=== PATIENT | male | born 1985 | race Caucasian/White ===

== ENCOUNTER 2022-10-15 18:02 | Emergency (ER) | payer OTHER, SELFPAY ==
[2022-10-15 18:15] VITALS: BP 113/83; PULSE 111; RESP 18; TEMP 37; O2SAT 96
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
== END 2022-10-15 18:45 | disposition home or self-care (01) ==
PROVIDERS: Emergency Provider Nurse Practitioner Family; PCP Physician Assistant
DX: S76.311A Strain of muscle, fascia and tendon of the posterior muscle group at thigh level, right thigh, initial encounter (principal); V40.6XXA Car passenger injured in collision with pedestrian or animal in traffic accident, initial encounter; R51.9 Headache, unspecified
CPT/HCPCS: 99213; G0463

== ENCOUNTER 2023-01-21 12:33 | Emergency (ER) | payer OTHER, SELFPAY ==
--- NOTE | ~2023-01-21 | XR_ITS ---
EXAMINATION: XR knee RT min 4V DATE: 01/21/2023 13:13 INDICATION: Swelling and erythema at the anteromedial right knee pain TECHNIQUE: Anteroposterior, 2 oblique and crosstable lateral views of the right knee were obtained COMPARISON: None. FINDINGS: Alignment is normal. No fracture. No joint effusion/layering lipohemarthrosis. There is prominent re latively dense prepatellar soft tissue swelling with swelling and less dense subcutaneous edema exten ding along the lateral aspect of the right knee and proximal calf. No soft tissue gas or radiopaque f oreign bodies. IMPRESSION: 1. Prominent relatively dense prepatellar soft tissue swelling which could represent prepatellar burs itis, cellulitis or posttraumatic contusion. 2. No osseous abnormality or right knee joint effusion. Reviewed, dictated and finalized at location B. IMPRESSION: 1. Prominent relatively dense prepatellar soft tissue swelling which could repr esent prepatellar bursitis, cellulitis or posttraumatic contusion. 2. No osseous abnormality or right knee joint effusion.
[2023-01-21 12:38] VITALS: BP 127/86; PULSE 95; RESP 18; TEMP 37.2; O2SAT 100
--- NOTE | 2023-01-21 13:01 | ED.LOWEXIN ---
HPI - Extremity Injury (Lower) General Chief Complaint: Extremity Injury, Lower Stated Complaint: Right Knee Injury Time Seen by Provider: 01/21/23 12:57 Source: patient and RN notes reviewed Mode of arrival: ambulatory Limitations: no limitations History of Present Illness HPI Narrative: 37-year-old male presents with concern for right knee redness, warmth, swelling, pain. He denies injury or trauma. Reports symptoms started yesterday afternoon. Reports it is painful to straighten the knee. He reports sweats. Denies fever, chills, body aches, streaking. Reports he has been taking ibuprofen complaint: other (knee swelling) Related Data Home Medications Medication Instructions Recorded Confirmed buspirone 10 mg tablet 10 mg PO BID 10/15/22 01/21/23 amlodipine 10 mg tablet 10 mg PO DAILY 01/21/23 01/21/23 losartan 100 mg tablet 100 mg PO DAILY 01/21/23 01/21/23 metoprolol succinate 50 mg 50 mg PO DAILY 01/21/23 01/21/23 tablet,extended release 24 hr paroxetine HCl 20 mg tablet 20 mg PO DAILY 01/21/23 01/21/23 Allergies Allergy/AdvReac Type Severity Reaction Status Date / Time No Known Allergies Allergy Verified 01/21/23 12:54 Review of Systems Review of Systems: CONSTITUTIONAL: Denies malaise, chills, or fever. Reports sweats CARDIOVASCULAR: Denies chest pain, palpitations, or edema. RESPIRATORY: Denies cough or dyspnea. SKIN: Denies rash or itching, bruising, open skin MUSCULOSKELETAL: Reports right knee redness, warmth, swelling, pain NEUROLOGIC: Denies numbness, weakness All systems reviewed & are unremarkable except as noted in HPI and below PMFSH Comments At time of signature, agree with nursing past medical, surgical, social and family history. There is no relevant family history pertinent to the presenting complaint Exam Narrative: GENERAL: Well-appearing, well-nourished, and in no acute distress. HEAD: Normocephalic, atraumatic. EYES: PERRLA, conjunctivae clear NECK: Supple. CHEST: Speaks in full sentences. No respiratory distress. HEART: Regular rate and rhythm. Normal and equal peripheral pulses. EXTREMITIES: Right knee has normal sensation, limited range of motion. Moderate edema, warmth, tenderness. No ecchymosis. Normal sensation with sensitivity to light touch and pain. No open wounds, no skin tenting, no devitalized tissue or atrophy, no trophic changes, no obvious deformity, alignment normal, nearby joints and structures intact. Distal pulses palpable and equal bilaterally, skin warm, dry, pink. Capillary refill less than 3 seconds. SKIN: Warm, dry, no rash. NEURO: Alert and oriented x3. PSYCH: Normal mood and affect Course Course Emergency Course: Patient is aware of diagnosis, understands and agrees to treatment plan. Anticipatory guidance given. Patient agrees to follow-up as directed and is aware of reasons to seek care at the emergency department. Portions of this record may have been created with voice recognition software Level of Care: Express Care Visit Vital Signs Vital signs: Vital Signs Temperature 98.9 F 01/21/23 12:38 Pulse Rate 95 01/21/23 12:38 Respiratory Rate 18 01/21/23 12:38 Blood Pressure 127/86 01/21/23 12:38 Pulse Oximetry 100 01/21/23 12:38 Oxygen Delivery Room Air 01/21/23 12:38 Temperature 98.9 F 01/21/23 12:38 Pulse Rate 95 01/21/23 12:38 Respiratory Rate 18 01/21/23 12:38 Blood Pressure 127/86 01/21/23 12:38 Pulse Oximetry 100 01/21/23 12:38 Oxygen Delivery Room Air 01/21/23 12:38 Reviewed. MDM - Extremity Injury (Lower) MDM Narrative Medical decision making narrative: Exam findings and imaging show no acute concerns or changes; patient is non-toxic appearing and is in no distress. Patient is appropriate for outpatient treatment and follow-up. Critical Care Time Critical Care Time Critical Care Time: No Discharge Plan Discharge Clinical Impression: Septic prepatellar bursitis of
--- NOTE | 2023-01-21 13:53 | PC.NURSE ---
PT DECLINED WHEELCHAIR TO RADIOLOGY
== END 2023-01-21 13:39 | disposition home or self-care (01) ==
PROVIDERS: Emergency Provider Nurse Practitioner; PCP Physician Assistant
DX: M70.41 Prepatellar bursitis, right knee (principal); I10 Essential (primary) hypertension; F41.9 Anxiety disorder, unspecified; F32.A Depression, unspecified
CPT/HCPCS: 73564; 99213; G0463

== ENCOUNTER 2023-06-25 05:00 | Emergency (ER) | payer OTHER, SELFPAY ==
--- NOTE | ~2023-06-25 | CT_ITS ---
Non-contrast Head CT History: Headache Technique: Axial non-contrast imaging of the brain was performed. Dose reduction technique was used on this scan by utilizing automated exposure control and iterative reconstruction technique. The dose -length product (DLP) was 605.33 mGy-cm. Findings: There is no evidence of intracranial hemorrhage, mass lesion, or acute infarct. Brain par enchyma appears normal. The ventricles and subarachnoid spaces are normal in size. The calvarium ap pears normal. The visualized paranasal sinuses and mastoid air cells are clear. Impression: No significant abnormality seen. Reviewed, dictated and finalized at location . ROOM TABLE ATTENDANT Impression: No significant abnormality seen.
[2023-06-25 05:00] VITALS: BP 140/102; PULSE 105; RESP 16; TEMP 36.5; O2SAT 97
[2023-06-25 05:14] VITALS: BP 144/112; PULSE 113; RESP 16; O2SAT 96
--- NOTE | 2023-06-25 05:39 | ED.GENADULT ---
HPI - General Adult General Chief complaint: Headache Stated complaint: headache Time Seen by Provider: 06/25/23 05:11 History of Present Illness HPI narrative: Patient is a 38-year-old gentleman who presents emergency department chief complaint of headache. Patient reports that the last few days he has had headache reports he has not taken any Tylenol not taken the ibuprofen reports that he is homeless and could not afford to go buy anything for his headache. The patient denies photophobia denies fever denies nuchal rigidity Related Data Home Medications Medication Instructions Recorded Confirmed buspirone 10 mg tablet 10 mg PO BID 10/15/22 01/21/23 amlodipine 10 mg tablet 10 mg PO DAILY 01/21/23 01/21/23 losartan 100 mg tablet 100 mg PO DAILY 01/21/23 01/21/23 metoprolol succinate 50 mg 50 mg PO DAILY 01/21/23 01/21/23 tablet,extended release 24 hr paroxetine HCl 20 mg tablet 20 mg PO DAILY 01/21/23 01/21/23 Allergies Allergy/AdvReac Type Severity Reaction Status Date / Time No Known Allergies Allergy Verified 01/21/23 12:54 Review of Systems Review of Systems: A 10 system review of systems was completed on the patient and is negative except for what is stated in the HPI. Nursing and ancillary documentation was reviewed. Exam Narrative: GENERAL: Well-appearing, well-nourished, and in no acute distress. HEAD: Normocephalic, atraumatic. EYES: PERRLA and EOMI. ENT: Nares clear, no rhinorrhea or epistaxis. Mucous membranes moist. NECK: Supple. No nuchal rigidity CHEST: Clear to auscultation. No respiratory distress. HEART: Regular rate and rhythm. No murmur heard. Normal peripheral pulses. ABDOMEN: Soft, nontender, nondistended, normal active bowel sounds. EXTREMITIES: Normal range of motion. No edema. SKIN: Warm, dry, no rash. NEURO: No focal deficits. Alert and oriented x3. PSYCH: Normal mood and affect. Course Vital Signs Vital signs: Vital Signs Temperature 36.5 C 06/25/23 05:00 Pulse Rate 105 H 06/25/23 05:00 Respiratory Rate 16 06/25/23 05:00 Blood Pressure 140/102 H 06/25/23 05:00 Pulse Oximetry 97 06/25/23 05:00 Oxygen Delivery Room Air 06/25/23 05:00 Temperature 36.5 C 06/25/23 05:00 Pulse Rate 113 H 06/25/23 05:14 Respiratory Rate 16 06/25/23 05:14 Blood Pressure 144/112 H 06/25/23 05:14 Pulse Oximetry 96 06/25/23 05:14 Oxygen Delivery Room Air 06/25/23 05:00 Medical Decision Making MDM Narrative Medical decision making narrative: Differential diagnosis includes intracranial hemorrhage, intracranial mass, tension headache, migraine headache The patient received a dose of Tylenol and a dose of Toradol in the emergency department is feeling much better now and would like to go home CT scan of the head showed no evidence of acute intracranial process Vital Signs Vital Signs: Vital Signs Temperature 36.5 C 06/25/23 05:00 Pulse Rate 105 H 06/25/23 05:00 Respiratory Rate 16 06/25/23 05:00 Blood Pressure 140/102 H 06/25/23 05:00 Pulse Oximetry 97 06/25/23 05:00 Oxygen Delivery Room Air 06/25/23 05:00 Temperature 36.5 C 06/25/23 05:00 Pulse Rate 113 H 06/25/23 05:14 Respiratory Rate 16 06/25/23 05:14 Blood Pressure 144/112 H 06/25/23 05:14 Pulse Oximetry 96 06/25/23 05:14 Oxygen Delivery Room Air 06/25/23 05:00 Discharge Plan Discharge Clinical Impression: Headache Patient Disposition: Home, Self-Care Condition: Stable Instructions: Antibiotic Form, Acute Headache (ED) Prescriptions: No Action buspirone 10 mg tablet 10 mg PO BID metoprolol succinate 50 mg tablet extended release 24 hr 50 mg PO DAILY amlodipine 10 mg tablet 10 mg PO DAILY paroxetine HCl 20 mg tablet 20 mg PO DAILY losartan 100 mg tablet 100 mg PO DAILY clindamycin HCl 300 mg capsule 300 mg PO Q8H 7 Days Qty: 21 0RF tramadol 50 mg tablet 50 mg P
[2023-06-25] MEDS: ACETAMINOPHEN 500 MG TABLET 1000 MG PO (05:46)
--- NOTE | 2023-06-25 05:51 | PC.NURSE ---
Patient currently does not want the Toradol and wants to see if the Tylenol helps.
[2023-06-25] MEDS: KETOROLAC 30 MG/ML VIAL (*BKC) IM (06:25)
[2023-06-25 07:00] VITALS: BP 123/87; PULSE 80; RESP 19; O2SAT 97
== END 2023-06-25 07:00 | disposition home or self-care (01) ==
PROVIDERS: Emergency Provider Emergency Medicine
DX: R51.9 Headache, unspecified (principal); Z59.00 Homelessness unspecified
CPT/HCPCS: 70450; 96372; 99284; A9270; J1885

== ENCOUNTER 2023-11-04 09:24 | Emergency (ER) | payer OTHER, SELFPAY ==
--- NOTE | ~2023-11-04 | CT_ITS ---
EXAMINATION: CT abdomen pelvis wo con DATE: 11/04/2023 11:01 INDICATION: Left lower quadrant abdominal pain. TECHNIQUE: Computed tomography (CT) of the abdomen and pelvis was performed without intravenous contr ast. Automated exposure control and iterative reconstruction technique were employed. The dose-length product was 465.20 mGy-cm. COMPARISON: None. FINDINGS: The visualized portions of the lung bases demonstrate mild atelectasis. No pleural effusion . The heart size is normal. No pericardial effusion. The liver, gallbladder, spleen, pancreas, adrena l glands, and kidneys are normal. There is no urolithiasis. There are scattered diverticula in the co edgar. There is fat stranding around the distal descending colon with focal colon wall thickening, cons istent with diverticulitis. There are no dilated loops of bowel. There are changes of appendectomy. T here are no pathologically enlarged lymph nodes. There is no free intraperitoneal fluid. There is an old healed fracture of left inferior pubic ramus. IMPRESSION: 1. Acute diverticulitis of distal descending colon. No perforation or abscess. Reviewed, dictated and finalized at location A.
[2023-11-04 09:34] VITALS: BP 147/104; PULSE 95; RESP 16; TEMP 37.1; O2SAT 98
[2023-11-04 10:00] LABS: Appearance Urine Cloudy (Clear); Bacteria Urine None Seen /hpf; Bilirubin Urine Negative (Negative); Blood Urine 1+ (Negative); Color Urine Dark Yellow (Yellow); Glucose Urine UA Negative (Negative); Ketones Urine Trace mg/dL (Negative); Leukocyte Esterase Ur Negative LEU/UL (Negative); Nitrate Urine Negative (Negative); Non Pathogenic Casts 0-2; Protein Urine Trace mg/dL (Negative); RBC Urine 0-2 /hpf (0-2); Specific Grav Ur 1.016 (1.001-1.035); Squamous Epithelial Cell Urine None Seen /hpf (Few); Urobilinogen Urine 0.2 mg/dL (<2.0); WBC Urine 0-5 /hpf (0-3); pH Urine 5.5 (5.0-9.0)
[2023-11-04 10:12] LABS: Basophils Percent Auto 0.3 % (0.2-1.2); Eosinophils Absolute Auto 0.1 K/mm3 (0-0.3); Hematocrit 38.7 % (42.0-52.0); Hemoglobin 13.6 g/dL (14.0-18.0); Immature Granulocyte Absolute 0.01 K/mm3 (0.00-0.031); Immature Granulocyte Percent A 0.2 % (0-0.5); Lymphocytes Absolute Auto 1.13 K/mm3 (0.9-3.2); Lymphocytes Percent Auto 18.7 % (18.3-44.2); Mean Corpuscular HGB Conc 35.1 g/dl (32-36); Mean Corpuscular Volume 85.4 fl (80-100); Monocytes Absolute Auto 0.5 K/mm3 (0.1-0.6); Monocytes Percent Auto 7.6 % (2.6-8.5); Neutrophils Absolute Auto 4.3 K/mm3 (1.3-6.7); Neutrophils Percent Auto 71.2 % (45.5-73.1); Platelet Count Result 238 k/mm3 (150-375); Red Blood Count 4.53 M/mm3 (4.6-6.20); Red Cell Distribution Width 12.9 % (11.5-14.5); White Blood Count 6.1 K/mm3 (4.5-10.0)
[2023-11-04 10:17] LABS: Alanine Aminotransferase 16 U/L (6-50); Albumin Level 4.7 g/dL (3.5-5.1); Alkaline Phosphatase 64 U/L (38-126); Anion Gap 6 mmol/L (4-12); Aspartate Amino Transferase 23 U/L (17-59); Bilirubin,Total 0.8 mg/dL (0.2-1.3); Blood Urea Nitrogen 19 mg/dL (9-20); Calcium 9.4 mg/dL (8.4-10.2); Carbon Dioxide 32 mmol/L (22-30); Chloride 100 mmol/L (98-107); Estimated CRCL calculation 99 ml/min; Estimated Glomerular Filt Rate > 60; Glucose 105 mg/dL (65-110); Lipase 150 U/L (23-300); Potassium 3.1 mmol/L (3.4-5.0); Sodium 138 mmol/L (137-145)
--- NOTE | 2023-11-04 10:51 | ED.ABDPAIN ---
HPI - Abdominal Pain General Chief Complaint: Abdominal Pain Stated Complaint: abdominal pain Time Seen by Provider: 11/04/23 10:23 History of Present Illness HPI narrative: 38-year-old male presents emergency room for evaluation of recurring left lower quadrant abdominal pain and diarrhea. Patient states 3 weeks ago he went to [facility] emergency room for left lower quadrant pain. Patient was diagnosed with uncomplicated diverticulitis. Was sent home with 2 antibiotics, patient states he took 1 of them as prescribed and began the 2nd antibiotic 2 days after his ER visit. Patient states that he completed both courses of antibiotics, and his abdominal pain resolved. States that he developed watery foul-smelling diarrhea after completing the courses of antibiotics. States he return to the emergency room where he was diagnosed with C diff. Patient was given a 10 day course of vancomycin which he finished couple of days ago. Patient states on Thursday he developed lower lobe quadrant abdominal pain again, felt feverish. Denies any radiating pain. Mandi states continues to experience watery diarrhea. Related Data Home Medications Medication Instructions Recorded Confirmed losartan 50 mg tablet mg 11/04/23 Allergies Allergy/AdvReac Type Severity Reaction Status Date / Time No Known Allergies Allergy Verified 11/04/23 09:25 Review of Systems Review of Systems: ROS unremarkable except for stated in the HPI Exam Narrative: GENERAL: Well-appearing, well-nourished, no physical limitations, and in no acute distress. HEAD: Normocephalic, atraumatic. EYES: Conjunctivae normal, PERRLA and EOMI. CHEST: Clear to auscultation. No respiratory distress. No wheezes rales or rhonchi. HEART: Regular rate and rhythm. No murmur heard. Normal peripheral pulses. ABDOMEN: Soft, left lower quadrant tenderness, nondistended, normal active bowel sounds. BACK: No CVA tenderness EXTREMITIES: Normal range of motion. No edema. No clubbing or cyanosis SKIN: Warm, dry, no rash. No noted wounds NEURO: No focal deficits. Alert and oriented x3. MAEW. CN's II-XI intact bilaterally, normal gait PSYCH: Cooperative. Normal mood and affect. Course Vital Signs Vital signs: Vital Signs Temperature 37.1 C 11/04/23 09:34 Pulse Rate 95 11/04/23 09:34 Respiratory Rate 16 11/04/23 09:34 Blood Pressure 147/104 H 11/04/23 09:34 Pulse Oximetry 98 11/04/23 09:34 Oxygen Delivery Room Air 11/04/23 09:34 Temperature 37.1 C 11/04/23 09:34 Pulse Rate 95 11/04/23 09:34 Respiratory Rate 16 11/04/23 09:34 Blood Pressure 147/104 H 11/04/23 09:34 Pulse Oximetry 98 11/04/23 09:34 Oxygen Delivery Room Air 11/04/23 09:34 MDM - Abdominal Pain Lab Data 11/04/23 09:40 11/04/23 09:40 Labs: Lab Results 11/04/23 11/04/23 Range/Units 09:40 09:42 WBC 6.1 (4.5-10.0) K/mm3 RBC 4.53 L (4.6-6.20) M/mm3 Hgb 13.6 L (14.0-18.0) g/dL Hct 38.7 L (42.0-52.0) % MCV 85.4 (80-100) fl MCH 30.0 (26-34) pg MCHC 35.1 (32-36) g/dl RDW 12.9 (11.5-14.5) % Plt Count 238 (150-375) k/mm3 MPV 10.0 (7.4-10.4) fl Immature Gran % (Auto) 0.2 (0-0.5) % Neut % (Auto) 71.2 (45.5-73.1) % Lymph % (Auto) 18.7 (18.3-44.2) % [place] % (Auto) 7.6 (2.6-8.5) % Eos % (Auto) 2.0 (0-4.4) % Baso % (Auto) 0.3 (0.2-1.2) % Lymph # (Auto) 1.13 (0.9-3.2) K/mm3 [place] # (Auto) 0.5 (0.1-0.6) K/mm3 Eos # (Auto) 0.1 (0-0.3) K/mm3 Baso # (Auto) 0.0 (0.0-0.1) K/mm3 Abs Immat Gran (auto) 0.01 (0.00-0.031) K/mm3 Absolute Neuts (auto) 4.3 (1.3-6.7) K/mm3 Absolute Nucleated RBC 0.000 (0.0-0.012) K/mm3 Nucleated RBC % 0.0 (0.0-0.2) % Sodium 138 (137-145) mmol/L Potassium 3.1 L (3.4-5.0) mmol/L Chloride 100 (98-107) mmol/L Carbon Dioxide 32 H (22-30) mmol/L Anion Gap 6 (4-12) mmol/L BUN 19 (9-20) mg/dL Creatinine 0.90
[2023-11-04 10:52] LABS: Add Urine Microscopic? YES
[2023-11-04 11:30] LABS: Lactic Acid Reflex 1.4 mmol/L (0.7-2.0)
[2023-11-04] MEDS: SODIUM CHLORIDE 0.9% IV 1,000 ML 999 ML IV CONT (11:30)
[2023-11-04 12:17] VITALS: BP 136/74; PULSE 90; RESP 14; O2SAT 99
== END 2023-11-04 12:17 | disposition home or self-care (01) ==
PROVIDERS: Student in an Organized Health Care Education/Training Program; Emergency Provider Nurse Practitioner Family
DX: K57.32 Diverticulitis of large intestine without perforation or abscess without bleeding (principal)
CPT/HCPCS: 36415; 74176; 80053; 81001; 83605; 83690; 85025; 96360; 99284; J7030

== ENCOUNTER 2025-05-25 21:58 | Emergency (ER) | payer OTHER, SELFPAY ==
[2025-05-25 22:01] VITALS: BP 165/132; PULSE 94; RESP 18; TEMP 36.3; O2SAT 97
--- OUTSIDE RECORDS SUMMARY | 2025-05-25 22:01 | XMS_ITS | Patient Health Record ---
Author Organization Formerly [facility], later [facility] Address [address] [place] [address] Phone [phone] Care Team Providers Care Foreign Collection Clerk Name Role Phone FreddyKasey navarrete DO Primary Care Provider [phone] Joshua Mccoy Unavailable [phone] Emily Dillon Unavailable [phone] Lucy Anderson Unavailable [phone] Allergies No Known Allergies Results Component Value Reference Range Flag Notes Breathalyzer Order date: 09/02/2024 Reviewed date:09/02/2024 03:15:52 PM Interpretation: Performing Lab: Notes/Report: CHERYL 0.000 12 Panel Urine Drug Screen Order date: 09/02/2024 Reviewed date:09/02/2024 03:15:45 PM Interpretation: Performing Lab: Notes/Report: THC Positvie CAYLA neg MOP (OPI) neg AMP neg MET neg BAR neg BZO neg MDMA neg MTD neg OXY neg PCP neg BUP neg QuantiFERON-TB Gold Plus ([id number]) Order date: 09/02/2024 Reviewed date:09/16/2024 05:15:39 PM Interpretation: Performing Lab:[facility] [place], [address], Phone - [phone], Director - [facility] Notes/Report: QuantiFERON Incubation Incubation performed. QuantiFERON-TB Gold Plus Negative Negative No response to M tuberculosis antigens detected. Infection with M tuberculosis is unlikely, but high risk individuals should be considered for additional testing (ATS/IDSA/CDC Clinical Practice Guidelines, 2017). The reference range is an Antigen minus Nil result of <0.35 IU/mL. Chemiluminescence immunoassay methodology QuantiFERON Criteria QuantiFERON-TB Gold Plus is a qualitative indirect test for M tuberculosis infection (including disease) and is intended for use in conjunction with risk assessment, radiography, and other medical and diagnostic evaluations. The QuantiFERON-TB Gold Plus result is determined by subtracting the Nil value from either TB antigen (Ag) value. The Mitogen tube serves as a control for the test. QuantiFERON TB1 Ag Value 0.15 QuantiFERON TB2 Ag Value 0.14 QuantiFERON Nil Value 0.11 QuantiFERON Mitogen Value >10.00 CMP 14 Comprehensive Metabol ic Panel* Order date: 09/02/2024 Reviewed date:09/16/2024 05:15:10 PM Interpretation: Performing Lab:[facility] [place], [address] [facility] ([facility]), Phone - [phone], Director - Kylie Notes/Report: Glucose 99 70-99 mg/dL BUN 21 6-24 mg/dL Creatinine 0.89 0.76-1.27 mg/dL eGFR 110 >59 mL/min/1.73 BUN/Creatinine Ratio 24 9-20 H Sodium 142 134-144 mmol/L Potassium 3.7 3.5-5.2 mmol/L Chloride 103 96-106 mmol/L Carbon Dioxide, Total 25 20-29 mmol/L Calcium 9.5 8.7-10.2 mg/dL Protein, Total 6.9 6.0-8.5 g/dL Albumin 4.5 4.1-5.1 g/dL Globulin, Total 2.4 1.5-4.5 g/dL Bilirubin, Total 0.5 0.0-1.2 mg/dL Alkaline Phosphatase 72 44-121 IU/L AST (SGOT) 16 0-40 IU/L ALT (SGPT) 13 0-44 IU/L Rapid Plasma Reagin (RPR) Te st With Reflex to Quantitative RPR and Confirmatory Treponema pallidum Antibodies Order date: 09/02/2024 Reviewed date:09/16/2024 05:15:22 PM Interpretation: Performing Lab:[facility] [place], [address] [facility], [place], Phone - [phone], Director - [facility] Hospital[facility]ri Notes/Report: RPR Non Reactive Non Reactive Hepatitis B Surface Antigen (HBsAg Screen) Order date: 09/02/2024 Reviewed date:09/16/2024 05:15:30 PM Interpretation: Performing Lab:[facility] [place], [address], Phone - [phone], Director - [facility] Notes/Report: HBsAg Screen Negative Negative Hepatitis C Virus Antibody w /Rflx to Quantitative Real-time PCR ([id number]) Order date: 09/02/2024 Reviewed date:09/16/2024 05:16:05 PM Interpretation: Performing Lab:[facility] [place], [address] [facility], [place], Phone - [phone], Director - [facility] Notes/Report: HCV Ab Non Reactive Non Reactive Interpretation: Not infected with HCV unless early or acute infection is suspected (which may be delayed in an immunocompromised individual), or other evidence exists to indicate HCV infection. HIV Screen *HIV 1, 2 Ab, p24 Ag ([id number]) Order date: 09/02/2024 Reviewed date:09/16/2024 05:15:49 PM Interpretation: Performing Lab:[facility] [place], [address] [facility], [place], Phone - [phone], Director - [facility] Notes/Report: HIV Ab/p24 Ag Screen Non Reactive Non Reactive HIV-1/HIV-2 antibodies and HIV-1 p24 antigen were NOT detected. There is no laboratory evidence of HIV infection. HIV Negative Reason For Referral No Information Medications Medication SIG (Take, Route, Frequency, Duration) Notes Start Date End Date Diagnosis (ICD Code) Status Losartan Potassium 50 MG Tablet 1 tablet Orally Once a day; Duration: 30 days on unit 09/06/2024 Hypertension (ICD_10 - I10) Active Losartan Potassium-HCTZ 100-12.5 MG Tablet 1 tablet Orally Once a day; Duration: 30 day(s) Not-Taking Citalopram Hydrobromide 20 MG Tablet 1 tablet Orally Once a day Not-Taking Social History Tobacco Use: Social History Observation Description Date Details (start date - stop date) Current Smoker NA - NA Sex Observation Social History Observation Description Sex Observation Male Sexual Orientation Social History Observation Description Sexual Orientation Straight or heterose xual Gender Identity Social History Observation Description Gender Identity Male SDOH Assessments Date Tool Assessment Assessment LOINC Value Assessment Notes Goals Interventions 09/07/19 PRAPARE ([facility]: 90224-0) Total Score: 5 What is your current housing situation? 04119-1 I do not have housing (staying with others, in a hotel, in a detention, living outside on the street, on a beach, or in a park) (IO65733-4 ) Are you worried about losing your housing? 03361-8 Yes (LA33-6) What is the highest level of school that you have finished? 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 Check all that apply 22771-1 I do not have problems meeting my needs Has lack of transportation k ept you from medical appointments, meetings, work or from getting things needed for daily living? 07374-5 No (LA32-8) How often do you see or talk to people that you care about and feel close to? (For example: talking to friends on the phone, visiting friends or family, going to jainism or club meetings) 94321-7 1 or 2 times a week (DC70882-9) How stressed are you? Stress is when someone feels tense, nervous, anxious, or can\t sleep at night because their mind is troubled 82394-0 Somewhat (SX16960-8) In the past year have you sp ent more than 2 nights in a row in a skilled nursing, jail, correction center, or juvenile correctional facility? 53119-7 No (LA32-8) Do you feel physically and e motionally safe where you currently live? 49145-8 Yes (LA33-6) In the past year, have you b een afraid of your partner or ex-partner? 36643-6 No (LA32-8) Are you a refugee? I choose not to answer this question What country are you from? I choose not to answer this question PRAPARE Score: 5 Social History Social Determinants Social Info Question Answer Notes SERENE What is your current housing situation? I do not have housing (staying with others, in a hotel, in a detention, living outside on the street, on a beach, or in a park) Are you worried about losing your housing? Yes What is the highest level of school that you have finished? 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 Check all that apply I do not have problems meeting my needs Has lack of transportation k ept you from medical appointments, meetings, work or from getting things needed for daily living? No How often do you see or talk to people that you care about and feel close to? (For example: talking to friends on the phone, visiting friends or family, going to jainism or club meetings) 1 or 2 times a week How stressed are you? Stress is when someone feels tense, nervous, anxious, or can\t sleep at night because their mind is troubled Somewhat In the past year have you sp ent more than 2 nights in a row in a skilled nursing, jail, correction center, or juvenile correctional facility? No Are you a refugee? I choose not to answer this q uestion What country are you from? I choose not to answe r this question Do you feel physically and e motionally safe where you currently live? Yes In the past year, have you b een afraid of your partner or ex-partner? No PRAPARE Score: 5 Miscellaneous Social Info Question Answer Notes Method of learning: Preferred method of learning: Read ing Primary Social History Social Info Question Answer Notes Living Arrangement Living Arrangement: Independent Bibi ing Is this a supportive environment? Yes Single Question Alcohol Screening How many times in the past year have you had (4 for women, or 5 for men) or more drinks in a day? 0 Employment Status Employment Status: Unemployed Illicit Substance Usage Illicit Substance Usage: Yes last used 07/04/20 Substance Used: Cannabis, Methamphetamine Alcohol Use Alcohol Use Frequency: Weekly or Daily Type of alcohol consumed Liquor last used 07/09/20 Quanity consumed on those occasions 1/2 pint a day Tobacco Use: Social Info Question Answer Notes Tobacco Control (Standard) Tobacco use: Current smoker Are you interested in quitting? Not ready to quit Additional Findings: Tobacco user e-cigarette Problems Problem Type SNOMED Code ICD Code Dates Problem Status W/U Status Risk Notes Problem Tobacco user (251594343) Nicotine dependence, unspecified, uncomplicated (F17.200) Added On:09/02 Active confirmed Problem Hypertension (94159879) Hypertension (I10) Added On:09/02 Onset Date: 06/15/19 19 Active confirmed Problem Depression (117027380) Depression (F32.9) Added On:09/02 Onset Date: 06/15/19 19 Active confirmed Problem Methamphetamine abuse (458391882) Methamphetamine abuse (F15.10) Added On:09/02 Active confirmed Problem Tobacco use (332887059) Tobacco use disorder (F17.200) Added On:07/25 Active confirmed Vital Signs Vital Sign Value Notes Appt Date Heart Rate 98 /min 09/06/2024 Temperature 98.7 degrees Fahrenheit 08/14 Respiratory Rate 16 /min 09/06/2024 Oximetry 97 % 09/06/2024 Blood pressure diastolic 120 mm Hg Height 70 in 09/06/2024 Blood pressure systolic 178 mm Hg 08/14 Weight 176 lbs 09/06/2024 BMI 25.25 kg/m2 09/06/2024 Encounters Date Time Type Facility Location Provider Diagnosis 01:00 PM Office Visit, New Pt., Level 3 (78870) [facility] [address] [place] [address] Joshua Mccoy Hypertension I10 ; Methamphetamine abuse F15.10 ; Depression F32.9 ; Exposure to potential infection Z20.9 ; Nutritional counseling Z71.3 and Nicotine dependence, unspecified, uncomplicated F17.200 5 02:00 PM Office Visit [facility] [address] [place] [address] Lucy Anderson 08:20 AM Office Visit, Est Pt., Level 3 (84820) [facility] [address] [place] [address] Emily Dillon Nutritional counseling Z71.3 ; Viral upper respiratory infection J06.9 ; Hypertension I10 and Nicotine dependence, unspecified, uncomplicated F17.200 Assessments Encounter Date Diagnosis (ICD Code) Assessment Notes Treat ment Notes Section Notes 09/02/2024 Hypertension (ICD-10 - I10) 09/02/2024 Methamphetamine abus e (ICD-10 - F15.10) 09/06/2024 Nutritional counseling (ICD-10 - Z71.3) 09/06/2024 Viral upper respiratory infection (ICD-10 - J06.9) discussed treatment of symptoms. RTC if symptoms worsen. Continue Mucinex 09/06/2024 Hypertension (ICD-10 - I10) 09/02/2024 Depression (ICD-10 - F32.9) 09/02/2024 Exposure to potentia l infection (ICD-10 - Z20.9) 09/06/2024 Nicotine dependence, unspecified, uncomplicated (ICD-10 - F17.200) 09/02/2024 Nutritional counseling (ICD-10 - Z71.3) 09/02/2024 Nicotine dependence, unspecified, uncomplicated (ICD-10 - F17.200) 09/06/2024 Other 09/02/2024 Other Clinician met w ith client to assess needs for residential services. Clinician gathered information regarding historical presentation of mental health and substance use symptoms including withdrawal, HIV Risk assessment, psychiatric hospitalization history and presenting concern. Clinician conducted PHQ9 and CSSRS assessments as well as social drivers of health screening for the purposes of identifying additional service needs. Plan Of Treatment No Information Insurance Providers Payer Name Payer Address Payer Phone Subscriber Number Group Number Insured Name Patient Relationship to Insured Coverage Start Date Coverage End Date [facility] [address] [place] [address] [id number] Bro Funk Self - patient is the insured 5 MEDICAID [address] [place] [address] [id number] Bro Luciano Self - patient is the insured 5 Medical (General) History Medical History History ICD Code Hypertension Anxiety Depression Chronic pain in left shoulder Surgical History Surgery Date(Month/Year) Denies Hospitalization History Reason Date(Month/Year) [facility] 2013
--- NOTE | 2025-05-26 01:20 | PC.NURSE ---
Attempted to room pt in ED RM 15, no answer when name called in WR.
== END 2025-05-26 01:20 | disposition left against medical advice (07) ==
PROVIDERS: PCP Internal Medicine
DX: F15.10 Other stimulant abuse, uncomplicated (principal)
CPT/HCPCS: 99199

== ENCOUNTER 2025-05-27 00:04 | Emergency (ER) | payer OTHER, SELFPAY ==
[2025-05-27 00:33] VITALS: BP 166/126; PULSE 95; RESP 16; TEMP 36.8; O2SAT 97
--- NOTE | 2025-05-27 01:09 | ED_ITS ---
HPI - General Adult General Chief complaint: Unspecified Stated complaint: Detox Time Seen by Provider: 05/27/25 01:22 Source: patient Mode of arrival: ambulatory Limitations: no limitations History of Present Illness HPI narrative: This is a 40-year-old male with history of hypertension and polysubstance abuse who presents to the ED for possible detox. Patient states that he last used meth 2 days ago and last drank alcohol yesterday. He states he has not been drinking alcohol regularly for the past few weeks. He only had a few drinks yesterday. Not feel that he is withdrawing from alcohol at this point. He reports concerns with when he comes off methamphetamines that he gets a left posterior headache. He is not having any of the symptoms right now. He states that he spoke to crisis who advised that he come here for further evaluation. Related Data Home Medications ?Medication ?Instructions ?Recorded ?Confirmed ?Last Taken ?Type losartan 50 mg tablet mg 11/04/23 Unknown History Allergies Allergy/AdvReac Type Severity Reaction Status Date / Time No Known Allergies Allergy Verified 05/27/25 00:06 Review of Systems Review of Systems: Gen.: Denies fevers or chills Eyes: Denies eye pain or visual change ENT: Denies congestion Respiratory: Denies shortness of breath or cough CV: Denies chest pain or palpitations GI: Denies abdominal pain nausea, emesis or diarrhea denies burning, urgency, frequency or hematuria Musculoskeletal: Denies back pain or muscle pain Neuro: Denies numbness, tingling, weakness or focal weakness Skin: Denies rash Except as documented, all other systems reviewed and negative Exam Narrative: APPEARANCE: No acute distress, nontoxic, resting in bed EYES: EOMI HEENT: Normocephalic, atraumatic, OMM RESPIRATORY: No respiratory distress Clear to auscultation bilaterally with no rhonchi wheezing or rales. CARDIOVASCULAR: Regular rate and rhythm without murmurs rubs or gallops. ABDOMINAL: Soft, nontender, nondistended, no rebound or guarding MUSCULOSKELETAl: Moves all extremities. No clubbing, cyanosis or edema. NEURO: Awake and alert. Following commands, speech normal, no focal deficits. No tremors, no tongue fasciculations SKIN:: Warm, dry. No rashes lesions or abrasions PSYCHIATRIC: Normal affect/mood, Course Vital Signs Vital signs: Vital Signs Temperature 98.3 F 05/27/25 00:33 Pulse Rate 95 05/27/25 00:33 Respiratory Rate 16 05/27/25 00:33 Blood Pressure 166/126 H 05/27/25 00:33 Pulse Oximetry 97 05/27/25 00:33 Oxygen Delivery Room Air 05/27/25 00:33 Temperature 97.5 F L 05/27/25 03:06 Pulse Rate 75 05/27/25 03:06 Respiratory Rate 18 05/27/25 03:06 Blood Pressure 138/68 05/27/25 03:06 Pulse Oximetry 100 05/27/25 03:06 Oxygen Delivery Room Air 05/27/25 00:33 MDM MDM Narrative Medical decision making narrative: 40-year-old male Presenting for request for detox. On initial evaluation patient was in no acute distress afebrile, hemodynamic stable. Differentials include but are not limited to: Methamphetamine abuse, alcohol abuse alcohol withdrawal, methamphetamine withdrawal, hypertension Notable exam findings: Nonfocal neuro exam heart and lungs clear. No tremors or tongue fasciculations Patient is asymptomatic at this time. He is not even having alcohol cravings despite his last drink being 12 hours ago. He is complaining headaches that once he has down and alcohol but he is not at point yet and is asymptomatic this time. He does have a PCP but he is not discuss that with him. I advised him to continue follow closely with his PCP regarding these issues. Patient was agreeable to this plan. Given strict return precautions. Differential Diagnosis Differential Diagnosis: Methamphetamine abuse, alcohol abuse alcohol withdrawal, methamphetamine withdrawal, hypertension Discharge Plan Discharge Clinical Impression: Methamphetamine abuse, Alcohol abuse Patient Disposition: Home Condition: Stable Instructions: Antibiotic Form, Abuse of Alcohol (ED), Methamphetamine Use Disorder (ED) Additional Instructions: Please follow-up with your PCP regarding your symptoms as they can work closely evaluate you and follow with you. Continue to seek out rehab if desired. Return to the ED for any new or worsening symptoms. Patient Language: Swedish Prescriptions: New losartan 100 mg tablet 100 mg PO DAILY Qty: 30 0RF No Action losartan 50 mg tablet amoxicillin-pot clavulanate 875-125 mg tablet 1 tablet PO Q8H 7 Days Qty: 21 0RF Follow-up/Referrals: Jai,MD Ehsan [Primary Care Provider]
--- OUTSIDE RECORDS SUMMARY | 2025-05-27 01:46 | XMS_ITS | Patient Health Record ---
Author Organization [facility] Address [address] [place] [address] Phone [phone] Care Team Providers Care School Bus Driver/Teacher Assistant Name Role Phone FreddyKasey navarrete DO Primary Care Provider [phone] Joshua Mccoy Unavailable [phone] Emily Dillon Unavailable [phone] Lucy Anderson Unavailable [phone] Allergies No Known Allergies Results Component Value [...] PCP neg BUP neg QuantiFERON-TB Gold Plus ([id number]) Order date: 09/02/2024 Reviewed date:09/16/2024 05:15:39 PM Interpretation: Performing Lab:[facility] [place], [address] [facility], Phone - [phone], Director - [facility] Notes/Report: QuantiFERON Incubation Incubation performed. QuantiFERON-TB Gold [...] 09/02/2024 Reviewed date:09/16/2024 05:15:10 PM Interpretation: Performing Lab:[facility] [place], [address] [facility], Phone - [phone], Director - Kylie Notes/Report: Glucose 99 70-99 [...] 09/02/2024 Reviewed date:09/16/2024 05:15:22 PM Interpretation: Performing Lab:[facility] [place], [address] [facility], [place], Phone - [phone], Director - PhDFranciscan Children'Sjerri Notes/Report: RPR Non Reactive Non Reactive Hepatitis B Surface Antigen (HBsAg Screen) Order date: 09/02/2024 Reviewed date:09/16/2024 05:15:30 PM Interpretation: Performing Lab:[facility] [place], [address] [facility], Phone - [phone], Director - [facility] Notes/Report: HBsAg Screen Negative Negative Hepatitis C Virus Antibody w /Rflx to Quantitative Real-time PCR ([id number]) Order date: 09/02/2024 Reviewed date:09/16/2024 05:16:05 PM Interpretation: Performing Lab:[facility] [place], [address] [facility], [place], Phone - [phone], Director - [facility] Notes/Report: HCV Ab Non Reactive Non Reactive Interpretation: Not infected with HCV unless early or acute infection is suspected (which may be delayed in an immunocompromised individual), or other evidence exists to indicate HCV infection. HIV Screen *HIV 1, 2 Ab, p24 Ag ([id number]) Order date: 09/02/2024 Reviewed date:09/16/2024 05:15:49 PM Interpretation: Performing Lab:[facility] [place], [address] [facility], [place], Phone - [phone], Director - [facility] Notes/Report: HIV Ab/p24 Ag Screen Non Reactive [...] Value Assessment Notes Goals Interventions 09/07/19 PRAPARE ([facility]: 22262-7) Total Score: 5 What is your current housing situation? 29748-9 I do not have housing (staying with others, in a hotel, in a residential, living outside on the street, on a beach, or in a park) (NP81136-6 ) Are you worried about losing your housing? 87010-5 Yes (LA33-6) What is the highest level of school that you have finished? 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 Check all that apply 84193-3 I do not have problems meeting my needs Has lack of transportation k ept you from medical appointments, meetings, work or from getting things needed for daily living? 29505-3 No (LA32-8) How often do you see or talk to people that you care about and feel close to? (For example: talking to friends on the phone, visiting friends or family, going to buddhism or club meetings) 05957-2 1 or 2 times a week (ME66253-7) How stressed are you? Stress is when someone feels tense, nervous, anxious, or can\t sleep at night because their mind is troubled 36530-9 Somewhat (YO21302-5) In the past year have you sp ent more than 2 nights in a row in a custodial, correction, retirement center, or juvenile correctional facility? 25906-1 No (LA32-8) Do you feel physically and e motionally safe where you currently live? 92782-9 Yes (LA33-6) In the past year, have you b een afraid of your partner or ex-partner? 04547-9 No (LA32-8) Are you a refugee? I choose not to answer this question What country are you from? I choose not to answer this question PRAPARE Score: 5 Social History Social Determinants Social Info Question Answer Notes SERENE What is your current housing situation? I do not have housing (staying with others, in a hotel, in a residential, living outside on the street, on a beach, or in a park) Are you worried about losing your housing? Yes What is the highest level of school that you have finished? 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 Stress is when someone feels tense, nervous, anxious, or can\t sleep at night because their mind is troubled Somewhat In the past year have you sp ent more than 2 nights in a row in a custodial, correction, retirement center, or juvenile correctional facility? No Are [...] W/U Status Risk Notes Problem Tobacco user (626741402) Nicotine dependence, unspecified, uncomplicated (F17.200) Added On:09/02 Active confirmed Problem Hypertension (69758120) Hypertension (I10) Added On:09/02 Onset Date: 06/15/19 19 Active confirmed Problem Depression (245417665) Depression (F32.9) Added On:09/02 Onset Date: 06/15/19 19 Active confirmed Problem Methamphetamine abuse (505475512) Methamphetamine abuse (F15.10) Added On:09/02 Active confirmed Problem Tobacco use (516646696) Tobacco use disorder (F17.200) Added On:07/25 Active confirmed Vital Signs Vital Sign Value Notes Appt Date Heart Rate 98 /min 09/06/2024 Temperature 98.7 degrees Fahrenheit 08/14 Respiratory Rate 16 /min 09/06/2024 Blood pressure diastolic 120 mm Hg Oximetry 97 % 09/06/2024 Height 70 in 09/06/2024 Blood pressure systolic 178 mm Hg 08/14 Weight 176 lbs 09/06/2024 BMI 25.25 kg/m2 09/06/2024 Encounters Date Time Type Facility Location Provider Diagnosis 01:00 PM Office Visit, New Pt., Level 3 (87759) [place] [address] [place] [address] Joshua Mccoy Hypertension I10 ; Methamphetamine abuse F15.10 ; Depression F32.9 ; Exposure to potential infection Z20.9 ; Nutritional counseling Z71.3 and Nicotine dependence, unspecified, uncomplicated F17.200 5 02:00 PM Office Visit [place] [address] [place] [address] Lucy Anderson 08:20 AM Office Visit, Est Pt., Level 3 (88859) [place] [address] [place] [address] Emily Dillon Nutritional counseling Z71.3 ; Viral [...] - I10) 09/02/2024 Depression (ICD-10 - F32.9) 09/06/2024 Nicotine dependence, unspecified, uncomplicated (ICD-10 - F17.200) 09/02/2024 Exposure to potentia l infection (ICD-10 - Z20.9) 09/02/2024 Nutritional counseling (ICD-10 - Z71.3) 09/02/2024 Nicotine dependence, unspecified, uncomplicated (ICD-10 - F17.200) 09/02/2024 Other Clinician met w [facility] client to assess needs for residential services. Clinician gathered information regarding historical presentation of mental health and substance use symptoms including withdrawal, HIV Risk assessment, psychiatric hospitalization history and presenting concern. Clinician conducted PHQ9 and CSSRS assessments as well as social drivers of health screening for the purposes of identifying additional service needs. 09/06/2024 Other Plan Of Treatment No Information Insurance Providers Payer Name Payer Address Payer Phone Subscriber Number Group Number Insured Name Patient Relationship to Insured Coverage Start Date Coverage End Date [facility] [address] [place] [phone] [id number] Bro Funk Self - patient is the insured 5 MEDICAID [address] [place] [address] [id number] Bro Luciano Self - patient is the insured 5 Medical (General) History Medical History History ICD Code Hypertension Anxiety Depression Chronic pain in left shoulder Surgical History Surgery Date(Month/Year) Denies Hospitalization History Reason Date(Month/Year) [facility] 2013
[2025-05-27 03:06] VITALS: BP 138/68; PULSE 75; RESP 18; TEMP 36.4; O2SAT 100
== END 2025-05-27 03:11 | disposition home or self-care (01) ==
PROVIDERS: Emergency Provider Student in an Organized Health Care Education/Training Program; PCP Internal Medicine
DX: F15.10 Other stimulant abuse, uncomplicated (principal); F10.10 Alcohol abuse, uncomplicated; Y90.9 Presence of alcohol in blood, level not specified; I10 Essential (primary) hypertension
CPT/HCPCS: 99281